=== PATIENT | male | born 1975 | race American Indian/Alaskan Native ===

== ENCOUNTER 2018-01-03 11:36 | Emergency (ER) | payer MEDICARE ==
[2018-01-03] MEDS ORDERED: KEPPRA PO ONE (12:53)
[2018-01-03] MEDS ORDERED: ATIVAN IM ONE (12:54)
--- NOTE | 2018-01-03 12:58 | Emergency Department Report ---
ED General Adult HPI - General Chief complaint: Seizure Stated complaint: SEIZURE Time Seen by Provider: 01/03/18 12:47 Source: patient, EMS Mode of arrival: Stretcher Limitations: Altered Mental Status, Physical Limitation - History of Present Illness Initial comments: Social history 2-year-old male who presents to the emergency department from a local psych facility for his seizure activity. Patient has a history of bipolar with major depressive disorder and also has a history of seizures. Patient is seizures are usually controlled with Tegretol but has not been on his seizure medicines since he's been at the psych facility. Mr. Mcdermott denies a headache or any other pain. I am familiar with this patient from another facility and the patient appears to be at his baseline -: Sudden Radiation: non-radiation Severity scale (0 -10): 1 Quality: other (not applicable) Consistency: other (not applicable) Improves with: other (not applicable) Worsens with: other (not applicable) Associated Symptoms: other (not applicable) - Related Data Allergies Allergy/AdvReac Type Severity Reaction Status Date / Time haloperidol [From Haldol] AdvReac Unknown Verified 01/03/18 12:06 iodine AdvReac Swelling Verified 01/03/18 12:06 ED Review of Systems ROS: Stated complaint: SEIZURE Other details as noted in HPI Comment: All other systems reviewed and negative Constitutional: denies: chills, fever Eyes: denies: eye pain, eye discharge, vision change ENT: denies: ear pain, throat pain Respiratory: denies: cough, shortness of breath, wheezing Cardiovascular: denies: chest pain, palpitations Endocrine: no symptoms reported Gastrointestinal: denies: abdominal pain, nausea, diarrhea Genitourinary: denies: urgency, dysuria Musculoskeletal: denies: back pain, joint swelling, arthralgia Skin: denies: rash, lesions Neurological: denies: headache, weakness, paresthesias Psychiatric: denies: anxiety, depression Hematological/Lymphatic: denies: easy bleeding, easy bruising ED Past Medical Hx - Social History Smoking Status: Never Smoker Substance Use Type: None ED Physical Exam - General Limitations: Altered Mental Status, Physical Limitation General appearance: alert, in no apparent distress - Head Head exam: Present: atraumatic, normocephalic - Eye Eye exam: Present: normal appearance, other (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 Absent: respiratory distress - Cardiovascular Cardiovascular Exam: Present: regular rate, normal rhythm. Absent: systolic murmur, diastolic murmur, rubs, gallop - GI/Abdominal GI/Abdominal exam: Present: soft, normal bowel sounds - Rectal Rectal exam: Present: deferred - Extremities Exam Extremities exam: Present: normal inspection - Back Exam Back exam: Present: normal inspection - Neurological Exam Neurological exam: Present: alert, oriented X3 - Psychiatric Psychiatric exam: Present: normal affect, normal mood - Skin Skin exam: Present: warm, dry, intact, normal color. Absent: rash ED Course Vital Signs 01/03/18 11:57 Temperature 98.9 F Pulse Rate 98 H Respiratory 17 Rate Blood Pressure 130/92 Blood Pressure 130/92 [Left] O2 Sat by Pulse 97 Oximetry ED Medical Decision Making - Medical Decision Making Patient given Keppra and Ativan and will be discharged Critical care attestation.: If time is entered above; I have spent that time in minutes in the direct care of this critically ill patient, excluding procedure time. ED Disposition Clinical Impression: Seizure Disposition: DC-01 TO HOME OR SELFCARE Is pt being admited?: No Does the pt Need Aspirin: No Condition: Stable Instructions: Non-epileptic Seizures (ED) Referrals: KRYSTAL LEVY MD [Staff Physician] - 3-5 Days Time of Disposition: 12:59
[2018-01-03 15:28] VITALS: BP 149/96
== END 2018-01-03 15:28 | disposition home or self-care (01) ==
LOC: ED 11:36
DX: R56.9 Unspecified convulsions (principal); F31.9 Bipolar disorder, unspecified
CPT/HCPCS: 93005; 93010; 96372; 99283; J2060

== ENCOUNTER 2018-01-03 23:58 | Emergency (ER) | payer MEDICARE ==
[2018-01-04] MEDS ORDERED: ATIVAN ONE ×2 (00:05→00:19)
[2018-01-04] MEDS ORDERED: ATIVAN IV ONE (00:25)
[2018-01-04] MEDS ORDERED: CEREBYX 1,000 MG.PE in NACL 0.9% 100 ML IV ONE (00:30)
--- NOTE | 2018-01-04 00:30 | Emergency Department Report ---
ED Seizure HPI - General Stated Complaint: SEIZURE Time Seen by Provider: 01/04/18 00:15 Source: patient, RN/MD, EMS, RN notes reviewed Mode of arrival: Stretcher Limitations: Altered Mental Status - History of Present Illness Initial Comments: Patient is a 42-year-old EMERGENCY room with multiple seizures. Patient is currently at [facility] for suicide ideations and suicidal depression treatment. Patient has a known history of seizures. Patient states that he is not been getting his Tegretol while at [facility]. During interview patient began having a seizure, Meds will be given. Discussed patient's case with nurse from [facility] and reviewed part of the available chart form facility. Nurse states that he has not been getting his Tegretol and is awaiting a medical consultation for med management at [facility]. Unable to complete rest in the HPI with the patient due to seizure, rest of formation from EMS and [facility] staff. MD Complaint: seizure -: Sudden Description of Episode: tonic-clonic movement -: second(s) Witnessed:: Yes Trauma: No Seizure History: known seizure disorder Place: other (at [facility] facility) Possible Precipitating Event: medication Associated Symptoms: denies: chest pain, confusion, cough, diaphoresis, fever/ chills, loss of appetite, malaise, rash, shortness of breath, syncope, weakness , tongue injury, shoulder dislocation Treatments Prior to Arrival: benzodiazepines - Related Data Allergies Allergy/AdvReac Type Severity Reaction Status Date / Time haloperidol [From Haldol] AdvReac Unknown Verified 01/03/18 12:06 iodine AdvReac Swelling Verified 01/03/18 12:06 ED Review of Systems ROS: Stated complaint: SEIZURE Other details as noted in HPI Comment: Unobtainable due to pts medical conditions (decreased responsiveness due to seizure) ED Past Medical Hx - Past Medical History Previous Medical History?: Yes Hx Hypertension: Yes Hx Diabetes: Yes Hx Seizures: Yes Hx Psychiatric Treatment: Yes - Surgical History Past Surgical History?: Yes Hx Appendectomy: Yes Additional Surgical History: Left eye surgery. Abdominal hernia repair. 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 Absent: respiratory distress - Cardiovascular Cardiovascular Exam: Present: regular rate, normal rhythm. Absent: systolic murmur, diastolic murmur, rubs, gallop - GI/Abdominal GI/Abdominal exam: Present: soft, normal bowel sounds - Rectal Rectal exam: Present: deferred - Extremities Exam Extremities exam: Present: normal inspection - Back Exam Back exam: Present: normal inspection - Neurological Exam Neurological exam: Present: altered - Skin Skin exam: Present: warm, dry, intact, normal color. Absent: rash ED Course Vital Signs 01/04/18 01/04/18 00:21 04:53 Temperature 99.2 F Pulse Rate 85 87 Respiratory 18 18 Rate Blood Pressure 122/79 Blood Pressure 97/60 [Right] O2 Sat by Pulse 99 100 Oximetry - Reevaluation(s) Reevaluation #1: While seen patient noted to have 2 seizures 01/04/18 00:36 Reevaluation #2: Patient has been seizure-free since medications were given. 01/04/18 02:30 Reevaluation #3: Patient stable for discharge. It is recommended the patient restart his Tegretol when he returns to [facility] will place this recommendation in his discharge paperwork. 01/04/18 03:31 ED Medical Decision Making - Lab Data Result diagrams: 01/04/18 01:47 01/04/18 01:47 - Radiology Data Radiology results: report reviewed No acute findings on CT scan of head. - Medical Decision Making Patient is currently in patient facility. Patient to restart his Tegretol at [facility]. - Differential Diagnosis missed doses of medications. Seizures. Dehydration. Critical Care Time: Yes Critical care attestation.: If time is entered above; I have spent that time in minutes in the direct care of this critically ill patient, excluding procedure time. Critical Care Time: 30 minutes spent for critical care time ED Disposition Clinical Impression: Seizure, Noncompliance Disposition: DC-01 TO HOME OR SELFCARE Is pt being admited?: No Does the pt Need Aspirin: No Condition: Stable Instructions: Recurrent Seizures Adult (ED) Additional Instructions: Patient to return to [facility] for treatment. Patient to follow up with primary caregiver [place] as soon as possible. Patient to restart Tegretol as soon as possible at [facility]. Patient to return to ER if condition worsens. Patient to take ibuprofen and Tylenol when necessary for pain. Patient increase water. Patient to rest. Patient states all prescription meds as directed per [facility] Referrals: RENUKA TRENT MD [Primary Care Provider] - 3-5 Days Time of Disposition: 03:33
[2018-01-04] MEDS ORDERED: NACL 0.9% 1000 ML 1,000 ML IV ONE (00:34)
--- NOTE | 2018-01-04 01:27 | Cat Scan Report ---
FINAL REPORT EXAM: CT HEAD/BRAIN WO CON HISTORY: Seizure TECHNIQUE: Routine axial imaging was obtained of the brain without IV contrast. There are no previous studies available for comparison. FINDINGS: There [id number] generalized atrophy. There is no evidence of acute stroke or hemorrhage. The ventricular system is appropriate in size and is symmetric. The basal cisterns appear normal. The sinuses reveal mucosal thickening in both maxillary sinuses also right frontal sinus. 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 The mastoid air cells are well pneumatized. The calvarium appears intact. IMPRESSION: [id number] generalized atrophy. No evidence of acute stroke or hemorrhage. Bilateral maxillary sinusitis with right frontal sinusitis.
[2018-01-04 02:15] LABS: Basophils % (Auto) 0.3 % (0.0-1.8); Eosinophils # (Auto) 0.1 K/mm3 (0.0-0.4); Eosinophils % (Auto) 1.7 % (0.0-4.3); Hematocrit 32.7 % (35.5-45.6); Hemoglobin 10.9 gm/dl (11.8-15.2); Lymphocytes # (Auto) 2.4 K/mm3 (1.2-5.4); Lymphocytes % (Auto) 37.9 % (13.4-35.0); Mean Corpuscular HGB Conc 33 % (32-34); Mean Corpuscular Hemoglobin 29 pg (28-32); Mean Corpuscular Volume 86 fl (84-94); Monocytes # (Auto) 0.6 K/mm3 (0.0-0.8); Monocytes % (Auto) 9.2 % (0.0-7.3); Platelet Count 272 K/mm3 (140-440); Red Blood Count 3.81 M/mm3 (3.65-5.03)
[2018-01-04 02:19] LABS: Alanine Aminotransferase 11 units/L (7-56); Albumin 3.4 g/dL (3.9-5); BUN/Creatinine Ratio 17; Blood Urea Nitrogen 10 mg/dL (9-20); Calcium 8.9 mg/dL (8.4-10.2); Hemolysis Index 0
[2018-01-04 04:54] VITALS: BP 97/60
== END 2018-01-04 05:50 | disposition home or self-care (01) ==
LOC: ED 23:58
DX: G40.909 Epilepsy, unspecified, not intractable, without status epilepticus (principal); I10 Essential (primary) hypertension; E11.9 Type 2 diabetes mellitus without complications; Z90.49 Acquired absence of other specified parts of digestive tract; Z88.8 Allergy status to other drugs, medicaments and biological substances; Z91.041 Radiographic dye allergy status; Z91.14 Patient's other noncompliance with medication regimen; Z79.899 Other long term (current) drug therapy
CPT/HCPCS: 36415; 70450; 80053; 80156; 85025; 96365; 99285; G0480; J2060; J7030; Q2009; 80320

== ENCOUNTER 2018-01-04 09:27 | Emergency (ER) | payer MEDICARE ==
[2018-01-04 09:35] VITALS: BP 156/98
--- NOTE | 2018-01-04 11:00 | Emergency Department Report ---
HPI - General Chief Complaint: Seizure Time Seen by Provider: 01/04/18 10:41 - HPI HPI: 42-year-old history of seizure to ED status post seizure-like activity. Patient denies any fever, neck pain, shortness of breath. Feels much better. Patient states that Tegretol helps his seizures the most but has not received it since he arrived at the psychiatric facility where he is getting treatment for his depression. ED Past Medical Hx - Past Medical History Hx Hypertension: Yes Hx Diabetes: Yes Hx Seizures: Yes Hx Psychiatric Treatment: Yes - Surgical History Hx Appendectomy: Yes Additional Surgical History: Left eye surgery. Abdominal hernia repair. Chest port placed and removed - Social History Smoking Status: Former Smoker Substance Use Type: None - Medications Home Medications: Home Medications Medication Instructions Recorded Confirmed Last Taken Type carBAMazepine [TEGretol] 200 mg PO Q12HR #60 tablet 01/04/18 Unknown Rx ED Review of Systems ROS: Stated complaint: SEIZURE Other details as noted in HPI Comment: All other systems reviewed and negative Constitutional: no symptoms reported Genitourinary: denies: urgency Musculoskeletal: denies: back pain Neurological: other (seizures) Psychiatric: denies: anxiety, depression Physical Exam - Physical Exam Vital Signs: Vital Signs 01/04/18 09:32 Temperature 98.1 F Pulse Rate 87 Respiratory 18 Rate Blood Pressure 156/98 O2 Sat by Pulse 98 Oximetry Physical Exam: - Physical Exam Physical Exam: - General Limitations: No Limitations General appearance: alert, in no apparent distress, obese - Head Head exam: Present: atraumatic, normocephalic - Eye Eye exam: Present: normal appearance - ENT ENT exam: Present: mucous membranes moist - Neck Neck exam: Present: normal inspection - Respiratory Respiratory exam: Present: normal lung sounds bilaterally. Absent: respiratory distress - Cardiovascular Cardiovascular Exam: Present: normal rhythm, tachycardia. Absent: systolic murmur, diastolic murmur, rubs, gallop - GI/Abdominal GI/Abdominal exam: Present: soft, normal bowel sounds - Extremities Exam Extremities exam: Present: normal inspection - Back Exam Back exam: Present: normal inspection - Neurological Exam Neurological exam: Present: alert, oriented X3 - Psychiatric Psychiatric exam: normal affect and mood - Skin Skin exam: Present: warm, dry, intact, normal color. Absent: rash ED Course Vital Signs 01/04/18 09:32 Temperature 98.1 F Pulse Rate 87 Respiratory 18 Rate Blood Pressure 156/98 O2 Sat by Pulse 98 Oximetry Critical care attestation.: If time is entered above; I have spent that time in minutes in the direct care of this critically ill patient, excluding procedure time. ED Disposition Clinical Impression: Seizure disorder Schizophrenia Qualifiers: Schizophrenia type: other Qualified Code(s): F20.89 - Other schizophrenia Depression Qualifiers: Depression Type: major depressive disorder Major depression recurrence: recurrent Active/Remission status: currently active Major depression episode severity: severe Psychotic features: with psychotic features Qualified Code(s): F33.3 - Major depressive disorder, recurrent, severe with psychotic symptoms Disposition: DC-01 TO HOME OR SELFCARE Is pt being admited?: No Does the pt Need Aspirin: No Condition: Stable Instructions: Recurrent Seizures Adult (ED) Prescriptions: carBAMazepine [TEGretol] 200 mg PO Q12HR #60 tablet Referrals: PRIMARY CARE, [Primary Care Provider] - 3-5 Days
== END 2018-01-04 12:53 | disposition home or self-care (01) ==
LOC: ED 09:27
DX: G40.909 Epilepsy, unspecified, not intractable, without status epilepticus (principal); F33.3 Major depressive disorder, recurrent, severe with psychotic symptoms; E11.9 Type 2 diabetes mellitus without complications; Z88.8 Allergy status to other drugs, medicaments and biological substances; Z91.041 Radiographic dye allergy status; Z90.49 Acquired absence of other specified parts of digestive tract; Z87.891 Personal history of nicotine dependence
CPT/HCPCS: 99283

== ENCOUNTER 2018-01-05 14:23 | Emergency (ER) | payer MEDICARE ==
[2018-01-05 14:37] VITALS: BP 128/74
--- NOTE | 2018-01-05 17:11 | Emergency Department Report ---
HPI - General Chief Complaint: Medical Clearance Time Seen by Provider: 01/05/18 16:05 - HPI HPI: 42-year-old -Tong[place] male with complicated psychiatric history currently admitted at [facility] for treatment for major depressive disorder is here today with headache, status post fall while having a seizure.. Patient has a history of seizure takes multiple medications to control these seizures. He denies any neck pain, is moving all extremities, and ambulating in the room without difficulty. ED Past Medical Hx - Past Medical History Hx Hypertension: Yes Hx Diabetes: Yes Hx Seizures: Yes Hx Psychiatric Treatment: Yes - Surgical History Hx Appendectomy: Yes Additional Surgical History: Left eye surgery. Abdominal hernia repair. Chest port placed and removed - Social History Smoking Status: Never Smoker Substance Use Type: None - Medications Home Medications: Home Medications Medication Instructions Recorded Confirmed Last Taken Type carBAMazepine [TEGretol] 200 mg PO Q12HR #60 tablet 01/04/18 Unknown Rx ED Review of Systems ROS: Stated complaint: MENTAL HEALTH /AMS Other details as noted in HPI Constitutional: no symptoms reported Cardiovascular: denies: chest pain, palpitations, dyspnea on exertion Neurological: headache Psychiatric: depression. denies: anxiety Physical Exam - Physical Exam Vital Signs: Vital Signs 01/05/18 14:30 Temperature 98.2 F Pulse Rate 78 Respiratory 16 Rate Blood Pressure 128/74 O2 Sat by Pulse 98 Oximetry Physical Exam: - Physical Exam Physical Exam: - General Limitations: No Limitations General appearance: alert, in no apparent distress. - Head Head exam: Present: atraumatic, normocephalic - Eye Eye exam: Present: normal appearance - ENT ENT exam: Present: mucous membranes moist - Neck Neck exam: Present: normal inspection - Respiratory Respiratory exam: Present: normal lung sounds bilaterally. Absent: respiratory distress - Cardiovascular Cardiovascular Exam: Present: normal rhythm, tachycardia. Absent: systolic murmur, diastolic murmur, rubs, gallop - GI/Abdominal GI/Abdominal exam: Present: soft, normal bowel sounds - Extremities Exam Extremities exam: Present: normal inspection - Back Exam Back exam: Present: normal inspection - Neurological Exam Neurological exam: Present: alert, oriented X3 - Psychiatric Psychiatric exam: normal affect and mood - Skin Skin exam: Present: warm, dry, intact, normal color. Absent: rash ED Course Vital Signs 01/05/18 14:30 Temperature 98.2 F Pulse Rate 78 Respiratory 16 Rate Blood Pressure 128/74 O2 Sat by Pulse 98 Oximetry Critical care attestation.: If time is entered above; I have spent that time in minutes in the direct care of this critically ill patient, excluding procedure time. ED Disposition Condition: Stable Referrals: PRIMARY CARE, [Primary Care Provider] - 3-5 Days
--- NOTE | 2018-01-05 17:28 | Cat Scan Report ---
FINAL REPORT EXAM: CT HEAD/BRAIN WO CON HISTORY: HEAD INJURY TECHNIQUE: Standard unenhanced CT of the head at 5.0 millimeter axial increments. PRIORS: CT head 01/04/2018 FINDINGS: The ventricular system is normal in size and configuration. Mild atrophy is again noted.. 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 There is no evidence for mass lesion, mass effect, midline shift, acute intracranial hemorrhage, or acute ischemia/ infarction. No evidence for acute skull fracture is seen. No abnormality in the overlying scalp soft tissues is seen. Visualized paranasal sinuses mild mucosal thickening in the maxillary sinuses bilaterally, stable IMPRESSION: No acute intracranial process noted. No change.
== END 2018-01-05 18:50 | disposition home or self-care (01) ==
LOC: ED 14:23
DX: R51 Headache (principal); I10 Essential (primary) hypertension; E11.9 Type 2 diabetes mellitus without complications
CPT/HCPCS: 70450; 99284